=== PATIENT | female | born 1960 | race Hispanic/Latino ===

== ENCOUNTER → 2017-04-26 | Outpatient (CLI) | payer OTHER | END | disposition home or self-care (01) | LOC: RAH 13:08 | PROVIDERS: ATTEND Internal Medicine | DX: E04.2 Nontoxic multinodular goiter (principal) | CPT/HCPCS: 76536 ==

== ENCOUNTER → 2017-05-03 | Outpatient (CLI) | payer OTHER | END | disposition home or self-care (01) | LOC: RAH 07:44 | PROVIDERS: ATTEND Internal Medicine Gastroenterology | DX: K76.0 Fatty (change of) liver, not elsewhere classified (principal); K82.4 Cholesterolosis of gallbladder | CPT/HCPCS: 76700 ==

== ENCOUNTER 2024-08-09 16:18 | Emergency (ER) | payer OTHER ==
[~2024-08-09] VITALS: Ht 144.8 cm; Wt 52.2 kg
[2024-08-09] MEDS: 0.9%NACL 1000ML 1,566 ML IV ONE ×2 (16:46)
[2024-08-09] MEDS: acetaMINOPHEN 500 MG TABLET PO ONE (16:46)
--- NOTE | 2024-08-09 16:48 | EKG ---
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
[2024-08-09 16:51] LABS: APPEARANCE,URINE CLEAR (CLEAR); BILIRUBIN,URINE NEGATIVE (NEGATIVE); COLOR,URINE LIGHT-YELLOW (YELLOW); GLUCOSE, URINE (UA) >=1000 mg/dL (NEGATIVE); KETONES,URINE 40 mg/dL (NEGATIVE); LEUKOCYTE ESTERASE ,URINE NEGATIVE Leu/uL (NEGATIVE); NITRATE,URINE NEGATIVE (NEGATIVE); OCCULT BLOOD,URINE MODERATE (NEGATIVE); UROBILINOGEN,URINE 0.2 mg/dL (0.2-1.0)
[2024-08-09 16:53] LABS: ADD UA MICROSCOPIC YES; PROTEIN,URINE NEGATIVE (NEGATIVE)
--- NOTE | 2024-08-09 16:54 | NUR ---
PT REFUSED IV AND THE REFUSED TO HAVE LABS DRAWN BY PHLEBOTOMY, HE THEN REUSED TYLENOL AND PT AND STATED THAT THEY WERE JUST JOKING, I EXPLAINED TO PT THAT WE ARE ON TIMELINES BECAUSE OF THE SEPSIS PROTOCOL, AND AGAIN PT AND STATED THAT THEY WERE JUST JOKING, NARCISA KOWALSKI SPOKE TO PT AND NURSE DREW WAS ABLE TO CONVINCE THE PT TO LET HIM PUT THE IV
[2024-08-09 16:55] LABS: MUCUS,URINE RARE LPF (None Seen); RBC,URINE 0-1 /HPF (0-1); WBC,URINE 0-1 /HPF (0-1)
--- NOTE | 2024-08-09 17:02 | NUR ---
I WILL BE ASKING TO SOMEONE ELSE TO ACCOMPANY ME WHEN I INTERACT WITH PT
[2024-08-09 17:06] LABS: BASOPHILS # (AUTO) 0.04 K/uL (0.00-0.20); BASOPHILS % (AUTO) 0.3 % (0.0-5.0); IMMATURE GRANULOCYTE ABSOLUTE 0.06 K/uL (0-1); LYMPHOCYTES # (AUTO) 0.6 K/uL (1.0-4.8); LYMPHOCYTES % (AUTO) 4.8 % (21.0-51.0); MEAN CORPUSCULAR HGB CONC 33.8 g/dL (32.0-36.0); MEAN CORPUSCULAR VOLUME 94.8 fL (79-99); MONOCYTES # (AUTO) 0.6 K/uL (0.1-1.0); NEUTROPHILS # (AUTO) 10.5 K/uL (1.8-7.7); NEUTROPHILS % (AUTO) 89.4 % (40.0-77.0); PLATELET COUNT (AUTO) 255 K/uL (130-400); RED BLOOD CELL COUNT(AUTO) 4.22 MIL/uL (4.00-5.50); RED CELL DISTRIBUTION WIDTH 12.7 % (11.0-15.5); WHITE BLOOD COUNT (AUTO) 11.8 K/uL (4.8-10.8)
[2024-08-09 17:16] LABS: CREATININE 0.8 mg/dL (0.5-1.0); POTASSIUM 3.6 mmol/L (3.5-5.1)
[2024-08-09 17:17] LABS: ALBUMIN 3.8 g/dL (3.5-5.0); BILIRUBIN,DIRECT 0.1 mg/dL (0.0-0.3); BILIRUBIN,TOTAL 0.3 mg/dL (0.2-1.0); TOTAL PROTEIN, SERUM 7.3 g/dL (6.0-8.3)
[2024-08-09] MEDS ORDERED: IOHEXOL-350 75 ML VIAL IV ONE (17:32)
--- NOTE | 2024-08-09 18:11 | HMCIMG ---
CT ABDOMEN/PELVIS W/CONTRAST HISTORY: abdominal pain, fever, chills, recent egd and colonoscopy TECHNIQUE: CT ABDOMEN/PELVIS W/CONTRAST Omnipaque contrast was used. Oral contrast was not given. Coronal and sagittal reformats were obtained. CT was performed with one or more of the following dose reduction techniques: Automated exposure control, adjustment of the mA and/or kV according to the patient's size, or use of the iterative reconstruction technique. Comparison: None. FINDINGS: No pulmonary consolidation or pleural effusion is seen. There is hepatic steatosis. No calcified gallstone is seen. The spleen, pancreas, and adrenal glands are within normal limits. No hydronephrosis. The urinary bladder is partially distended. Small left renal cyst is seen. Hysterectomy changes are noted. There is diffuse wall thickening of the colon consistent with pancolitis. No bowel obstruction is seen. Appendix is normal in caliber. Atherosclerotic changes of the aorta with calcified plaques. Degenerative changes of the spine are seen. IMPRESSION: There is diffuse wall thickening of the colon consistent with pancolitis. No bowel obstruction is seen.
[2024-08-09] MEDS ORDERED: METR375C2 PO (18:59)
[2024-08-09] MEDS ORDERED: CIPR-278 PO (18:59)
--- NOTE | 2024-08-09 19:00 | ERN ---
ED Note History of Present Illness Stated Complaint: CHILLS,NAUSEADED,STOMACH PAIN Chief Complaint: Abdominal Pain Time Seen by MD: 16:27 Time Seen by Midlevel: 16:29 Dictation: 64-year-old female coming in for chills and lower abdominal pain. Denies any nausea or vomiting. Patient states he had a colonoscopy and EGD done on 08/05. Patient states he is exams were done routinely. Patient has a history of diabetes, cholesterol hypertension. Allergies: Coded Allergies: No Known Drug Allergies (Unverified Allergy, Unknown, 08/09/24) Past Medical History Past Medical History: Diabetes-Type II, High Cholesterol Surgical History: Surgical History Other: PARTIAL HYSTERECTOMY Review of System Dictation Constitutional: Negative for fever,chills, and weight loss Eyes: Negative for injury, pain,redness, and discharge ENT: Negative for injury,pain or swelling Cardiovascular: Negative for chest pain, palpitations, and edema Respiratory: Negative for shortness of breath, cough, and wheezing, Abdomen/GI: Negative for abdominal pain, nausea, vomiting, diarrhea, and constipation Back: Negative for injury and pain : Negative for injury, bleeding and discharge MS/Extremity: Negative for injury and deformity Skin: Negative for rash, and discoloration Neuro: Negative for headache, weakness, numbness, tingling, and seizure Psych: Negative for suicide ideation, homicidal ideation, and hallucinations Review of Systems: was completed Initial Vital Sign VS Vital Signs Date Time Temp Pulse Resp B/P (MAP) Pulse Ox O2 Delivery O2 Flow Rate FiO2 08/09/24 16:22 101.5 102 14 155/96 98 Room Air 0 08/09/24 18:25 21 Physical Exam Dictation General: awake, alert, NAD Head/Face: Normocephalic, atraumatic Eyes: PERRL, EOMI, vision at baseline ENT: oral cavity clear, TMs clear, no signs of infection Neck: Trachea midline, supple, no nuchal rigidity Cardiovascular: RRR, normal S1/S2, No MRGs, no JVD Respiratory: CTAB, no respiratory distress, No rales or wheezes Abdomen: Soft, non-tender, non-distended, normal bowel sounds, no guarding or rebound. Skin: Warm, dry, normal turgor, no rash MS/Extremity: Pulses equal, no cyanosis, neurovascular intact, FROM Neuro: COAx4, GCS 15, strength 5/5, CN 2-12 intact, normal cerebellar exam, normal gait, Psych: Normal behavior, mood, and affect normal Results (Laboratory/Radiology) Laboratory/Radiology Laboratory Tests Test 08/09/24 16:35 08/09/24 16:55 Urine Color LIGHT-YELLOW (YELLOW) Urine Appearance CLEAR (CLEAR) Urine pH 5.0 (5.0-8.0) Urine Specific [place] 1.036 (1.001-1.031) Urine Protein NEGATIVE mg/dL (NEGATIVE) Urine Glucose (UA) >=1000 mg/dL (NEGATIVE) H Urine Ketones 40 mg/dL (NEGATIVE) H Urine Occult Blood MODERATE (NEGATIVE) H Urine Nitrate NEGATIVE (NEGATIVE) Urine Bilirubin NEGATIVE mg/dL (NEGATIVE) Urine Urobilinogen 0.2 mg/dL (0.2-1.0) Urine Leukocyte Esterase NEGATIVE Michael/uL Urine RBC 0-1 /HPF (0-1) Urine WBC 0-1 /HPF (0-1) Urine Bacteria None /HPF (None Seen) White Blood Count 11.8 K/uL (4.8-10.8) H Red Blood Count 4.22 MIL/uL (4.00-5.50) Hemoglobin 13.5 g/dL (12.0-16.0) Hematocrit 40.0 % (36-48) Mean Corpuscular Volume 94.8 fL (79-99) Mean Corpuscular Hemoglobin 32.0 pg (27.0-33.0) Mean Corpuscular Hemoglobin Concent 33.8 g/dL (32.0-36.0) Red Cell Distribution Width 12.7 % (11.0-15.5) Platelet Count 255 K/uL (130-400) Mean Platelet Volume 9.6 fL (7.5-10.5) Immature Granulocyte % (Auto) 0.5 % (0-1) Neutrophils (%) (Auto) 89.4 % (40.0-77.0) H Lymphocytes (%) (Auto) 4.8 % (21.0-51.0) L Monocytes (%) (Auto) 5.0 % (3.0-13.0) Eosinophils (%) (Auto) 0.0 % (0.0-8.0) Basophils (%) (Auto) 0.3 % (0.0-5.0) Neutrophils # (Auto) 10.5 K/uL (1.8-7.7) H Lymphocytes # (Auto) 0.6 K/uL (1.0-4.8) L Monocytes # (Auto) 0.6 K/uL (0.1-1.0) Eosinophils # (Auto) 0.00 K/uL (0.00-0.70) Basophils # (Auto) 0.04 K/uL (0.00-0.20) Absolute Immature Granulocyte (auto 0.06 K/uL (0-1) Nucleated Red Blood Cells 0.0 % (0.0-0.19) White Cell Morphology Comment See comments Sodium Level 135 mmol/L (136-145) L Potassium Level 3.6 mmol/L (3.5-5.1) Chloride Level 101 mmol/L (101-111) Carbon Dioxide Level 23 mmol/L (21-32) Blood Urea Nitrogen 15 mg/dL (7-18) Creatinine 0.8 mg/dL (0.5-1.0) Glomerular Filtration Rate Calc 82 mL/min (>90) Random Glucose 107 mg/dL (70-105) H Lactic Acid Level 1.1 mmol/L (0.8-2.5) Total Calcium 8.6 mg/dL (8.5-10.1) Total Bilirubin 0.3 mg/dL (0.2-1.0) Direct Bilirubin 0.1 mg/dL (0.0-0.3) Aspartate Amino Transf (AST/SGOT) 16 U/L (10-37) Alanine Aminotransferase (ALT/SGPT) 20 U/L (12-78) Alkaline Phosphatase 54 U/L (50-136) Total Creatine Kinase 69 U/L (21-232) Troponin I High Sensitivity 8 ng/L (4-50) Total Protein 7.3 g/dL (6.0-8.3) Albumin 3.8 g/dL (3.5-5.0) Lipase 48 U/L (16-77) Labs Reviewed?: Yes EKG Comment: EKGs done at 4:46 p.m.. Sinus rhythm at a rate of 90. No STEMI interpreted by ER CT Scan Comment: [place] [id number] [place] [id number] IMAGING REPORT Signed PATIENT: ROBERTO SHAY MR#: [id number] : 1960 SEX: F AGE: 64 LOCATION: [facility] ORDER [id number] STATUS: REG ER REPORT#: [id number] SERVICE 1628 REASON: abdominal pain, fever, chills, recent egd and colonoscopy ORDERING PHYSICIAN: DEX MCKEON NP PROCEDURE: ABD PEL W - CT ABDOMEN/PELVIS W/CONTRAST CT ABDOMEN/PELVIS W/CONTRAST HISTORY: abdominal pain, fever, chills, recent egd and colonoscopy TECHNIQUE: CT ABDOMEN/PELVIS W/CONTRAST Omnipaque contrast was used. Oral contrast was not given. Coronal and sagittal reformats were obtained. CT was performed with one or more of the following dose reduction techniques: Automated exposure control, adjustment of the mA and/or kV according to the patient's size, or use of the iterative reconstruction technique. Comparison: None. FINDINGS: No pulmonary consolidation or pleural effusion is seen. There is hepatic steatosis. No calcified gallstone is seen. The spleen, pancreas, and adrenal glands are within normal limits. No hydronephrosis. The urinary bladder is partially distended. Small left renal cyst is seen. Hysterectomy changes are noted. There is diffuse wall thickening of the colon consistent with pancolitis. No bowel obstruction is seen. Appendix is normal in caliber. Atherosclerotic changes of the aorta with calcified plaques. Degenerative changes of the spine are seen. IMPRESSION: There is diffuse wall thickening of the colon consistent with pancolitis. No bowel obstruction is seen. DICTATED BY: BOUCHRA ROMERO MD DATE: 08/09/24 1806 ELECTRONICALLY SIGNED BY: BOUCHRA ROMERO MD DATE: 08/09/24 1811 ED Course ED Course Orders Procedure Category Date Status Time Cbc With Differential LAB 08/09/24 Complete 16: Blood Cult JAMARI 08/09/24 In Process 16:28 Urinalysis Profile LAB 08/09/24 Complete 16:28 Culture Urine JAMARI 08/09/24 In Process 16:28 0.9%Nacl 1000ml (Ns PHA 08/09/24 In Process 1000ml) 16:30 Creatine Kinase, Total LAB 08/09/24 Complete 16:28 Troponin I High LAB 08/09/24 Complete Sensitivity 16:28 Lactic Acid LAB 08/09/24 Complete 16:28 Basic Metabolic Panel LAB 08/09/24 Complete 16:28 Lipase LAB 08/09/24 Complete 16:28 Hepatic Function Panel LAB 08/09/24 Complete 16:28 Ct Abdomen/Pelvis CT 08/09/24 Resulted W/Contrast 16:28 Acetaminophen 500mg PHA 08/09/24 Complete Tab (Tylenol 500mg T 16:30 0.9%Nacl 1000ml (Ns PHA 08/09/24 In Process 1000ml) 16:30 12 Lead Ekg Tracing- EKG 08/09/24 Resulted Technical 16:31 Troponin I High LAB 08/09/24 Logged Sensitivity 16:31 Iohexol (Omnipaque) PHA 08/09/24 Complete 17:32 Current Medications Medications (Trade) Dose Ordered Sig/[place]er Route PRN Reason Start Time Stop Time Status Last Admin Dose Admin Acetaminophen (TYLenol 500MG TAB) 1,000 mg ONCE ONCE PO 08/09/24 16:30 08/09/24 16:34 DC 08/09/24 16:46 Iohexol (Omnipaque) 75 ml STK-MED ONCE IV 08/09/24 17:32 08/09/24 17:37 DC Sodium Chloride 1,566 ml @ 522 mls/hr ONCE ONCE IV 08/09/24 16:30 08/09/24 19:29 08/09/24 16:46 Sodium Chloride 1,566 ml @ 522 mls/hr ONCE ONCE IV 08/09/24 16:30 08/09/24 19:29 Vital Signs Date Time Temp Pulse Resp B/P (MAP) Pulse Ox O2 Delivery O2 Flow Rate FiO2 08/09/24 18:25 99.0 88 16 133/72 98 Room Air* 0 21 08/09/24 16:22 101.5 102 14 155/96 98 Room Air 0 Medical Decision Making MDM MDM: 64-year-old female coming in for chills and lower abdominal pain. Denies any nausea or vomiting. Patient states he had a colonoscopy and EGD done on 08/05. Patient states he is exams were done routinely. Patient has a history of diabetes, cholesterol hypertension.CBC shows mild leukocytosis of 11.8, no anemia, no thrombocytopenia. Chemistry shows mild hyponatremia, fluids given in the ER. Normal kidney function. Lactic level is 1.1. No transaminitis, T bili and lipase within normal range. Troponin is negative. UA shows no evidence of urinary tract infection. CT scan of the abdomen and pelvis shows diffuse wall thickening of the colon consistent with pancolitis. Discussed findings with the patient. Patient will be discharged home with antibiotics and have patient foll ow up with PCP in 1-2 days. Patient verbalized understanding, answered all questions. Differential diagnosis: Sepsis, viral syndrome, Rationale: Tests considered and ordered secondary to shared decision making include: Previous outside records reviewed: Old ER visits. Risk of complication and/or morbidity or mortality of patient management: None Medications-Per medication reconciliation Need for hospitalization: Patient does not meet criteria for hospitalization. Need for emergency major/minor surgery: No There are no social concerns with this patient. Prescription drug management Prescriptions will include symptomatic care Patient's prior external medical records from other ER visits were reviewed by me as indicated. Prior testing and results from previous visits were reviewed. Prior tests were taken into account with medical decision making and resource utilization, independent historian/historians were used to obtain complete medical history. I independently interpreted the test that were performed, results were reviewed by me and considered findings on radiology if ordered. Medical management and examination interpretation discussions were had by me with other qualified healthcare professionals as indicated for the patient's care. DX & DISP Disposition: Discharge Departure Impression: Primary Impression: Pancolitis Condition: Stable Scripts Metronidazole (Flagyl) 375 Mg Capsule 1 CAP PO BID for 7 Days, #14 CAP 0 Refills Prov: DEX MCKEON NP 08/09/24 Ciprofloxacin HCl (Cipro) 500 Mg Tablet 1 TAB PO BID for 10 Days, #20 TAB 0 Refills Prov: DEX MCKEON ANTIQUE COLLECTOR 08/09/24 Referrals: MARY KATE CHAKRABORTY MD (PCP) Time of Disposition: 18:59 I have reviewed the case, and I agree with, Diagnosis and Plan I PERFORMED A SUBSTANTIVE PORTION OF THE VISIT. I HAVE REVIEWED AND PERSONALLY MADE AND APPROVE THE MANAGEMENT PLAN THAT IS DOCUMENTED IN THE NOTE BY MYSELF OR THE AP P. I ACKNOWLEDGE FULL RESPONSIBILITY FOR THE PATIENT'S MANAGEMENT PLAN. DEX MCKEON NP August 09, 2024 19:00
[2024-08-09 19:17] VITALS: BP 132/81; PULSE 74; RESP 18; TEMP 98.8; O2SAT 98
== END 2024-08-09 19:19 | disposition home or self-care (01) ==
LOC: EDH 16:18
DX: R10.30 Lower abdominal pain, unspecified (principal); K52.9 Noninfective gastroenteritis and colitis, unspecified; E11.9 Type 2 diabetes mellitus without complications; E78.00 Pure hypercholesterolemia, unspecified
CPT/HCPCS: 99285; 74177; 82550; 80076; 84484; 80048; 83690; 85025; 87040 ×2; 87086; 83605; 81001; 36415; 93005; J7030; Q9967